=== PATIENT | female | born 1945 ===

== ENCOUNTER 2018-02-16 06:00 | Outpatient (CLI) | payer OTHER ==
[~2018-02-16] VITALS: Ht 165.1 cm; Wt 74.8 kg
[2018-02-16] MEDS ORDERED: VASOTEC5 MG PO (15:26)
[2018-02-16] MEDS ORDERED: TOPROL XL50 M1 PO (15:27)
== END 2018-02-16 06:05 | disposition home or self-care (01) ==
LOC: EKG 06:00 → SURG 02-23 04:45 → O/R 02-23 05:00 → SURG 02-23 14:34 → EDSTATUS 03-02 04:45 → SURG 03-02 04:45 → O/R 03-02 06:39 → EKG 03-07 04:45
DX: R19.09 Other intra-abdominal and pelvic swelling, mass and lump (principal); Z01.810 Encounter for preprocedural cardiovascular examination

== ENCOUNTER 2018-04-17 10:45 | Inpatient (IN) | payer OTHER ==
[~2018-04-17] VITALS: Ht 162.6 cm; Wt 75.7 kg
[~2018-04-17 10:45] MED LIST: TOPROL XL50 M1 PO; VASOTEC5 MG PO
== END 2018-04-22 11:23 | DRG 741 ==
LOC: OB/GYN 04-20 06:10 → O/R 04-20 06:10 → OB/GYN 04-20 14:17 → O/R 04-20 14:17 → OB/GYN 04-20 15:29
PROVIDERS: Obstetrics & Gynecology Gynecologic Oncology
PROC: 0UT74ZZ Resection of Bilateral Fallopian Tubes, Percutaneous Endoscopic Approach (ICD-10-PCS; 2018-04-20)
PROC: 0UT24ZZ Resection of Bilateral Ovaries, Percutaneous Endoscopic Approach (ICD-10-PCS; 2018-04-20)
PROC: 0DTU4ZZ Resection of Omentum, Percutaneous Endoscopic Approach (ICD-10-PCS; 2018-04-20)
PROC: 3E1M38Z Irrigation of Peritoneal Cavity using Irrigating Substance, Percutaneous Approach (ICD-10-PCS; 2018-04-20)
PROC: 0DBW4ZZ Excision of Peritoneum, Percutaneous Endoscopic Approach (ICD-10-PCS; principal; 2018-04-20 12:45)
DX: C53.0 Malignant neoplasm of endocervix (principal); R19.02 Left upper quadrant abdominal swelling, mass and lump